=== PATIENT | female | born 1960 | race Caucasian/White ===

== ENCOUNTER 2016-05-11 17:15 | Emergency (ER) | payer MEDICAID ==
[~2016-05-11] VITALS: Wt 69.0 kg
[2016-05-11 20:09] LABS: URINE BLOOD (Dip) POC Trace-intact (NEGATIVE)
[2016-05-11] MEDS ORDERED: SOD CHLORIDE 0.9% 1,000 ML IV STA (20:10)
[2016-05-11] MEDS ORDERED: ONDANSETRON 4 MG INJ IV STA (20:10)
[2016-05-11] MEDS ORDERED: morphine 4 MG/ML VIAL IV STA (20:10)
--- NOTE | 2016-05-11 20:10 | ERD ---
ER Documentation Chief Complaint Date/Time DATE: 05/11/16 TIME: 20:10 Chief Complaint ABD PAIN WITH DIARRHEA AND "SWELLING" X 1 WEEK HPI 56-year-old female history of hyperlipidemia, status post remote cholecystectomy ambulatory to the ED complaining of a three-week history of intermittent, moderate, crampy, generalized, non-radio abdominal pain with feelings of abdominal distention for 1 week. She also has had intermittent, burning, nonradiating epigastric pain which is not improved by eating. Mild nausea but no vomiting. Several episodes of nonbloody, nonmucoid diarrhea. Denies recent travel, ill contacts or spelled food exposure. Yesterday she was seen at [facility] and treated with nitrofurantoin for urinary tract infection but symptoms have not improved. Denies dysuria, polyuria, hematuria or flank pain. No vaginal discharge or bleeding. No chest pain or palpitations. No headache or neck pain. No fevers or chills. ROS All systems reviewed and are negative except as per history of present illness. Allergies Allergies: Coded Allergies: No Known Allergies (Verified Allergy, Mild, 07/12/10) PMhx/Soc Reviewed in chart. As per HPI History of Surgery: Yes (Cholecystectomy) Anesthesia Reaction: No Hx Neurological Disorder: No Hx Respiratory Disorders: No Hx Cardiac Disorders: Yes (HIGH CHOLESTEROL) Hx Psychiatric Problems: No Hx Miscellaneous Medical Probl: No Hx Alcohol Use: No Hx Substance Use: No Hx Tobacco Use: No FmHx No stroke or cancer Physical Exam Vitals Vital Signs Date Time Temp Pulse Resp B/P Pulse Ox O2 Delivery O2 Flow Rate FiO2 05/11/16 20:59 98.6 76 18 140/64 100 Room Air 05/11/16 17:18 98.7 87 18 137/60 99 Physical Exam Const: Alert, mild distress due to pain. Head: Atraumatic Eyes: Normal Conjunctiva. Sclera anicteric. ENT: Normal External Ears, Nose and Mouth. Neck: Full range of motion. Nontender. Full range of motion. Resp: Breath sounds are equal and clear to auscultation bilaterally. No rales rhonchi or wheezes. Cardio: Regular rate and rhythm, no murmurs Abd: Soft, non tender, non distended. Normal bowel sounds. No rebound or guarding. No masses or abnormal pulsations. Skin: No petechiae or rashes Back: No midline or flank tenderness Ext: No cyanosis, or edema Neur: Awake and alert. No focal deficit observed. Psych: Normal Mood and Affect Result Diagram: 05/11/16200405/11/162004 Results 24 hrs Laboratory Tests Test 05/11/16 20:00 05/11/16 20:05 05/11/16 20:08 Urine Color DK. YELLOW Urine Clarity CLEAR Urine pH 6.5 Urine Specific [place] 1.020 Urine Ketones TRACE Urine Nitrite NEGATIVE Urine Bilirubin NEGATIVE Urine Urobilinogen 0.2 E.U./dL Urine Leukocyte Esterase NEGATIVE Urine Hemoglobin NEGATIVE Urine Glucose NEGATIVE% Urine Total Protein NEGATIVE White Blood Count 9.010^3/ul Red Blood Count 4.5910^6/ul Hemoglobin 13.3g/dl Hematocrit 40.0% Mean Corpuscular Volume 87.1fl Mean Corpuscular Hemoglobin 29.0pg Mean Corpuscular Hemoglobin Concent 33.3g/dl Red Cell Distribution Width 13.4% Platelet Count 61865^3/UL Mean Platelet Volume 10.2fl Neutrophils % 48.8% Lymphocytes % 40.1% Monocytes % 7.7% Eosinophils % 2.7% Basophils % 0.4% Nucleated Red Blood Cells % 0.0/100WBC Neutrophils # 4.410^3/ul Lymphocytes # 3.610^3/ul Monocytes # 0.710^3/ul Eosinophils # 0.210^3/ul Basophils # 0.010^3/ul Nucleated Red Blood Cells # 0.010^3/ul Sodium Level 143mmol/L Potassium Level 3.4mmol/L Chloride Level 104mmol/L Carbon Dioxide Level 26mmol/L Anion Gap 16 Blood Urea Nitrogen 13mg/dl Creatinine 0.79mg/dl Glucose Level 98mg/dl Calcium Level 9.7mg/dl Total Bilirubin 0.3mg/dl Direct Bilirubin 0.00mg/dl Indirect Bilirubin 0.3mg/dl Aspartate Amino Transf (AST/SGOT) 41IU/L Alanine Aminotransferase (ALT/SGPT) 70IU/L Alkaline Phosphatase 100IU/L Total Protein 7.5g/dl Albumin 4.2g/dl Globulin 3.30g/dl Albumin/Globulin Ratio 1.27 Lipase 69U/L Bedside Urine pH (LAB) 6.0 Bedside Urine Protein (LAB) Negative Bedside Urine Glucose (UA) Negative Bedside Urine Ketones (LAB) 1+ Bedside Urine Blood Trace-intact Bedside Urine Nitrite (LAB) Negative Bedside Urine Leukocyte Esterase (L Negative Current Medications Medications (Trade) Dose Ordered Sig/Trevor Route PRN Reason Start Time Stop Time Status Last Admin Dose Admin Sodium Chloride (NS) 1,000 ml @ 1,000 mls/hr Q1H STAT IV 05/11/16 20:10 05/11/16 21:09 DC 05/11/16 20:24 Morphine Sulfate (morphine) 4 mg ONCE STAT IV 05/11/16 20:10 05/11/16 20:13 DC 05/11/16 20:24 Ondansetron HCl (Zofran Inj) 4 mg ONCE STAT IV 05/11/16 20:10 05/11/16 20:13 DC 05/11/16 20:24 Pantoprazole (Protonix Iv) 40 mg ONCE ONCE IV 05/11/16 20:30 05/11/16 20:31 DC 05/11/16 20:24 IV Flush 10 ml 10 ml STK-MED ONCE .ROUTE 05/11/16 21:18 05/11/16 21:19 DC 05/11/16 21:31 Sodium Chloride (NS) 100 ml @ ud STK-MED ONCE .ROUTE 05/11/16 21:18 05/11/16 21:19 DC 05/11/16 21:31 Iohexol (Omnipaque 300mg/ ml) 150 ml STK-MED ONCE .ROUTE 05/11/16 21:18 05/11/16 21:19 DC 05/11/16 21:31 PROCEDURE: CT Abdomen and Pelvis with contrast. CLINICAL INDICATION: Abdominal pain. TECHNIQUE: A CT scan of the abdomen and pelvis was performed with intravenous contrast. The patient was scanned following the uncomplicated intravenous administration of 100 cc of Omnipaque-300. Coronal and sagittal reformatted images were obtained from the axial source images. Images were reviewed on a high-resolution PACS workstation. CTDIvol: 13.42 mGy. DLP: 671.93 mGy-cm. One or more of the following dose reduction techniques were used: - Automated exposure control. - Adjustment of the mA and/or kV according to patient size. - Use of iterative reconstruction technique. COMPARISON: None. FINDINGS: There are minimal atelectatic changes at the lung bases. The liver is unremarkable. The patient is status post cholecystectomy. The common bile duct is not dilated. The spleen is not enlarged. No pancreatic lesion is identified and there is no pancreatic ductal dilatation. The adrenal glands are unremarkable. The kidneys are normal in size. There is no perinephric fat stranding. No hydronephrosis is seen. The small and large bowel are normal in caliber. There is no bowel wall thickening. The appendix is normal. The urinary bladder is unremarkable. The pelvic organs are within normal limits. No lymphadenopathy is identified. There is no ascites. No pneumoperitoneum is seen. There are no arterial calcifications. No suspicious osseous lesion is idenitified. IMPRESSION: 1. No inflammation, mass, or lymphadenopathy. 2. Normal appendix. 3. Status post cholecystectomy. RPTAT: HTAR .Horacio Ly MD, MD Date Time Electronically viewed and signed by .Horacio yL MD, MD on 05/11/2016 22:01 .R/ Procedures/MDM DOCUMENTS REVIEWED: ED nurse prior ED MEDICAL DECISION MAKIN-year-old female history of hyperlipidemia, status post remote cholecystectomy ambulatory to the ED for evaluation of abdominal pain. Abdominal exam is benign without significant tenderness, rebound, guarding or other signs of peritonitis. CT of the abdomen and pelvis is unremarkable for an acute process including but not limited to appendicitis, diverticulitis, bowel obstruction or colitis. Epigastric abdominal pain possibly related to gastritis/GERD. Ongoing diarrhea which began before she started the antibiotics and C. difficile is unlikely. Viral gastroenteritis, bacterial enteritis and foodborne illness were considered. No fever, leukocytosis or other signs of an occult infectious process. An occult malignancy is not ruled out. Patient improved significantly with IV hydration, analgesics, antiemetics and proton pump inhibitors. Patient understands that the etiology of her symptoms have not been definitively established but in the absence of signs of serious disease outpatient follow-up is appropriate. Stable for discharge with precautionary instructions and outpatient follow-up as counseled. Counseled patient regarding diagnostic workup, diagnosis and need for followup. Understands to return to ED if symptoms recur, worsen or any other concerns. Departure Diagnosis: Primary Impression: Abdominal pain of unknown etiology Additional Impressions: Gastritis Gastritis type: unspecified gastritis Chronicity: acute Gastritis bleeding : without bleeding Qualified Code: K29.00 - Acute gastritis without hemorrhage, unspecified gastritis type Diarrhea Diarrhea type: unspecified type Qualified Code: R19.7 - Diarrhea, unspecified type Condition: Stable Patient Instructions: Abdominal Pain, Unknown Cause, (Female), Gastritis Vs. Ulcer, Treating Diarrhea DENICE BUENO MD May 11, 2016 20:10
[2016-05-11 20:23] LABS: ADD SCAN DIFF NO
[2016-05-11 20:28] LABS: BASOPHILS % 0.4 % (0.0-2.0); EOSINOPHILS # 0.2 10^3/ul (0.0-0.5); EOSINOPHILS % 2.7 % (0.0-7.0); HEMOGLOBIN 13.3 g/dl (12.0-16.0); LYMPHOCYTES # 3.6 10^3/ul (0.8-2.9); LYMPHOCYTES % 40.1 % (15.0-51.0); MEAN CORPUSCULAR HGB CONC 33.3 g/dl (32.0-37.0); MEAN CORPUSCULAR VOLUME 87.1 fl (82.0-101.0); MEAN PLATELET VOLUME 10.2 fl (7.4-10.4); MONOCYTE # 0.7 10^3/ul (0.3-0.9); MONOCYTES % 7.7 % (0.0-11.0); NEUTROPHIL # 4.4 10^3/ul (1.6-7.5); NEUTROPHILS % 48.8 % (39.0-77.0); PLATELET COUNT 399 10^3/UL (140-415); RED BLOOD COUNT 4.59 10^6/ul (4.20-5.40); RED CELL DISTRIBUTION WIDTH 13.4 % (11.5-14.5)
[2016-05-11] MEDS ORDERED: PANTOPRAZOLE 40 MG INJ IV ONE (20:30)
[2016-05-11 20:37] LABS: ALBUMIN 4.2 g/dl (3.3-4.9)
[2016-05-11 20:38] LABS: POTASSIUM 3.4 mmol/L (3.5-5.1)
[2016-05-11 20:40] LABS: ALBUMIN/GLOBULIN RATIO 1.27; BILIRUBIN,INDIRECT 0.3 mg/dl (0-1.1); BILIRUBIN,TOTAL 0.3 mg/dl (0.2-1.3); CREATININE 0.79 mg/dl (0.44-1.00); TOTAL PROTEIN 7.5 g/dl (6.1-8.1)
[2016-05-11 20:41] LABS: CALCIUM 9.7 mg/dl (8.4-10.2)
[2016-05-11 21:03] LABS: ADD UMIC NO; URINE BILIRUBIN (Dip) NEGATIVE (NEGATIVE); URINE BLOOD (Dip) NEGATIVE (NEGATIVE); URINE COLOR DK. YELLOW (YELLOW); URINE GLUCOSE (Dip) NEGATIVE (NEGATIVE); URINE KETONES (Dip) TRACE (NEGATIVE); URINE LEUKOCYTE ESTERASE (Dip) NEGATIVE (NEGATIVE); URINE NITRITE (Dip) NEGATIVE (NEGATIVE); URINE TOTAL PROTEIN (Dip) NEGATIVE (NEGATIVE); URINE UROBILINOGEN (Dip) 0.2 E.U./dL (0.1-1.0)
[2016-05-11] MEDS ORDERED: SOD CHLORIDE 0.9% 100 ML ONE (21:18)
[2016-05-11] MEDS ORDERED: IOHEXOL 300MG/ML 150 ML BTL ONE (21:18)
--- NOTE | 2016-05-11 22:01 | RADRPT ---
PROCEDURE: CT Abdomen and Pelvis with contrast. CLINICAL INDICATION: Abdominal pain. TECHNIQUE: A CT scan of the abdomen and pelvis was performed with intravenous contrast. The patie nt was scanned following the uncomplicated intravenous administration of 100 cc of Omnipaque-300. C oronal and sagittal reformatted images were obtained from the axial source images. Images were revie wed on a high-resolution PACS workstation. CTDIvol: 13.42 mGy. DLP: 671.93 mGy-cm. One or more of the following dose reduction techniques were used: - Automated exposure control. - Adjustment of the mA and/or kV according to patient size. - Use of iterative reconstruction technique. COMPARISON: None. FINDINGS: There are minimal atelectatic changes at the lung bases. The liver is unremarkable. The patient is status post cholecystectomy. The common bile duct is not dilated. The spleen is not enlarged. No pancreatic lesion is identified and there is no pancreatic d uctal dilatation. The adrenal glands are unremarkable. The kidneys are normal in size. There is no perinephric fat stranding. No hydronephrosis is seen. The small and large bowel are normal in caliber. There is no bowel wall thickening. The appendix is normal. The urinary bladder is unremarkable. The pelvic organs are within normal limits. No lymphadenopathy is identified. There is no ascites. No pneumoperitoneum is seen. There are no art erial calcifications. No suspicious osseous lesion is idenitified. IMPRESSION: 1. No inflammation, mass, or lymphadenopathy. 2. Normal appendix. 3. Status post cholecystectomy. RPTAT: HTAR .Horacio Ly MD, Date Time Electronically viewed and signed by .Horacio Ly MD, MD on 05/11/2016 22:01 .R/
[2016-05-11] MEDS ORDERED: PANT40TA3 PO (22:38)
[2016-05-11] MEDS ORDERED: CIPR500T4 PO (22:38)
[2016-05-11 22:51] VITALS: BP 142/72; PULSE 68; RESP 18; TEMP 98.6
== END 2016-05-11 22:54 | disposition home or self-care (01) ==
LOC: E/R 17:15
DX: R10.84 Generalized abdominal pain (principal); K29.00 Acute gastritis without bleeding; R19.7 Diarrhea, unspecified; R40.2142 Coma scale, eyes open, spontaneous, at arrival to emergency department; R40.2252 Coma scale, best verbal response, oriented, at arrival to emergency department; R40.2362 Coma scale, best motor response, obeys commands, at arrival to emergency department; I10 Essential (primary) hypertension; J45.909 Unspecified asthma, uncomplicated; R11.0 Nausea; F17.210 Nicotine dependence, cigarettes, uncomplicated
CPT/HCPCS: 36415; 74177; 80053; 81003; 83690; 85025; 96374; 96375; C9113; J2270; J2405; J7030; Q9967; Z7502; Z7610

== ENCOUNTER 2016-06-22 17:01 | Emergency (ER) | payer BC, MEDICAID ==
[~2016-06-22] VITALS: Ht 157.5 cm; Wt 68.5 kg
[~2016-06-22 17:01] MED LIST: CIPR500T4 PO; PANT40TA3 PO
[2016-06-22 17:22] VITALS: Ht 157.5 cm; Wt 68.5 kg
[2016-06-22] MEDS ORDERED: IBUP-1542 PO (17:44)
--- NOTE | 2016-06-22 17:53 | ERA ---
ER Documentation Chief Complaint Date/Time DATE: 06/22/16 TIME: 17:48 Chief Complaint left neck pain radiates down left are starting today at 3pm HPI 56-year-old female with a chief complaint of left arm pain. Patient denies any shortness of breath or chest pain. Patient describes the pain in the shoulder is sharp worse when abducting arm. Patient denies radiation of the pain. Denies cardiac condition or diabetes. Pain has been lasting constantly for the past 3 days and is difficult to sleep on her side. Patient does not report any mechanism of injury/trauma. Patient was seen by another emergency department 1 day ago and was given tramadol for pain. Says that the tramadol is not providing enough pain relief. The patient speaks Syriac and the nurse Will was the siderographer. ROS All systems reviewed and are negative except as per history of present illness. Medications Home Meds Active Scripts Ibuprofen* (Motrin*) 600 Mg Tab, 600 MG PO Q6, #30 TAB Prov:MARILEE GALEAS PA-C 06/22/16 Ciprofloxacin Hcl* (Ciprofloxacin Hcl*) 500 Mg Tablet, 500 MG PO BID for 3 Days , TAB Prov:DENICE BUENO MD 05/11/16 Pantoprazole* (Protonix*) 40 Mg Tablet.dr, 40 MG PO DAILY, #20 TAB Prov:DENICE BUENO MD 05/11/16 Allergies Allergies: Coded Allergies: No Known Allergies (Verified Allergy, Mild, 07/12/10) PMhx/Soc History of Surgery: Yes (Cholecystectomy) Anesthesia Reaction: No Hx Neurological Disorder: No Hx Respiratory Disorders: Yes (ASTHMA) Hx Cardiac Disorders: Yes (HIGH CHOLESTEROL, HTN) Hx Psychiatric Problems: No Hx Miscellaneous Medical Probl: No Hx Alcohol Use: No Hx Substance Use: No Hx Tobacco Use: Yes Physical Exam Vitals Vital Signs Date Time Temp Pulse Resp B/P Pulse Ox O2 Delivery O2 Flow Rate FiO2 06/22/16 17:22 98.3 89 18 139/77 97 Physical Exam Const: Overweight 56-year-old female Head: Atraumatic Eyes: Normal Conjunctiva ENT: Normal External Ears, Nose and Mouth. Neck: Full range of motion..~ No meningismus. Resp: Clear to auscultation bilaterally Cardio: Regular rate and rhythm, no murmurs Abd: Soft, non tender, non distended. Normal bowel sounds Skin: No petechiae or rashes Back: No midline or flank tenderness Ext: Decreased range of motion in left arm with abduction. Drop arm sign was positive. Pain with passive range of motion on abduction past 90. No impingement felt. No cyanosis, or edema Neur: Awake and alert Psych: Normal Mood and Affect Procedures/MDM 56-year-old female with a chief complaint being evaluated for left arm pain 3 days. Patient's most likely diagnosis is rotator cuff syndrome. There is no impact reason for me to suspect fracture. Denies osteoporosis/osteomalacia. And significant medical history. Patient's physical exam was consistent with rotator cuff syndrome/tear. We will go ahead and change the patient's pain relief medication to ibuprofen and have advised the patient that she should stop taking tramadol. Have stressed the need to follow-up with family practitioner/primary care provider for further evaluation and and evaluation by an crime scene specialist. The patient verbally responded that she understood to these recommendations and the plan of management. Departure Diagnosis: Primary Impression: Rotator cuff syndrome of left shoulder Condition: Stable Patient Instructions: Understanding Rotator Cuff Injuries Additional Instructions: Finn un seguimiento con shin PCP dentro de los prximos 1-3 adamson para sofia evaluaci n ms completa y sofia posible derivacin a un especialista. Devuelva el departamento de emergencia inmediatamente si los sntomas empeoran o cambian. Si tiene alguna pregunta con respecto a los medicamentos, consulte con shin farmac utico o con nosotros antes de salir. Si se producen reacciones adversas mientras salas elvin medicamentos, suspenda el tratamiento y regrese inmediatamente al servicio de urgencias. Travilah elvin medicamentos segn las indicaciones y complete el curso completo del tratamiento. MARILEE GALEAS PA-C June 22, 2016 17:53
== END 2016-06-22 18:53 | disposition home or self-care (01) ==
LOC: FTE 17:01
DX: M75.102 Unspecified rotator cuff tear or rupture of left shoulder, not specified as traumatic (principal); J45.909 Unspecified asthma, uncomplicated; I10 Essential (primary) hypertension; Z87.891 Personal history of nicotine dependence
CPT/HCPCS: 99283

== ENCOUNTER 2018-09-02 15:59 | Emergency (ER) | payer SELFPAY ==
[~2018-09-02] VITALS: Ht 157.5 cm; Wt 69.7 kg
[~2018-09-02 15:59] MED LIST changes: +IBUP-1542 PO
[2018-09-02 16:02] VITALS: BP 140/77; PULSE 94; RESP 20; Ht 157.5 cm; Wt 69.7 kg
--- NOTE | 2018-09-02 16:09 | EN ---
Date/Time of Note Date/Time of Note DATE: 09/02/18 TIME: 16:07 ER Progress Note 58-year-old female with 1 week history of generalized body aches headache, upper extremities, lower extremities. She has pain with putting on her shoes and closed. She is concerned she has lupus. Patient has a history of prediabetes, diet-controlled, history of cholecystectomy and tubal ligation. General labs ordered from ED 3. Patient otherwise well-appearing. ED 2 appropriate for lab results and symptomatic treatment. MITCHELL SZYMANSKI MD Sep 02, 2018 16:09
--- NOTE | 2018-09-02 17:07 | ERD ---
ER Documentation Chief Complaint Chief Complaint TOTAL BODYACHES AND FEELING TIRED HPI 58-year-old female with no reported past medical history with 1 week history of generalized body aches headache, upper extremities, lower extremities. She has pain with putting on her shoes and closed. She is concerned she has lupus. Patient has a history of prediabetes, diet-controlled, history of cholecystectomy and tubal ligation. He otherwise reports good health, denying chest pain, shortness of breath, dyspnea, nausea, vomiting, diarrhea, abdominal pain, urinary symptoms. She has not seen a PMD in some time. ROS All systems reviewed and are negative except as per history of present illness. Medications Home Meds Active Scripts Ibuprofen* (Motrin*) 600 Mg Tab, 600 MG PO Q6, #30 TAB Prov:ERICKA TOLBERT PA-C 09/02/18 Ibuprofen* (Motrin*) 600 Mg Tab, 600 MG PO Q6, #30 TAB Prov:MARILEE GALEAS PA-C 06/22/16 Ciprofloxacin Hcl* (Ciprofloxacin Hcl*) 500 Mg Tablet, 500 MG PO BID for 3 Days, TAB Prov:DENICE BUENO MD 05/11/16 Pantoprazole* (Protonix*) 40 Mg Tablet.dr, 40 MG PO DAILY, #20 TAB Prov:DENICE BUENO MD 05/11/16 Allergies Allergies: Coded Allergies: No Known Allergies (Verified Allergy, Mild, 09/02/18) PMhx/Soc History of Surgery: Yes (Cholecystectomy) Anesthesia Reaction: No Hx Neurological Disorder: No Hx Respiratory Disorders: Yes (ASTHMA) Hx Cardiac Disorders: Yes (HIGH CHOLESTEROL, HTN) Hx Psychiatric Problems: No Hx Miscellaneous Medical Probl: No Hx Alcohol Use: No Hx Substance Use: No Hx Tobacco Use: Yes Smoking Status: Never smoker FmHx Family History: No diabetes, No coronary disease, No other Physical Exam Vitals Vital Signs Date Temp Pulse Resp B/P (MAP) Pulse Ox O2 O2 Flow FiO2 Time Delivery Rate 09/02/18 99.1 94 20 140/77 99 16:02 (98) Physical Exam Const: No acute distress Head: Atraumatic Eyes: Normal Conjunctiva ENT: Normal External Ears, Nose and Mouth. Neck: Full range of motion. No meningismus. Resp: Clear to auscultation bilaterally Cardio: Regular rate and rhythm, no murmurs Abd: Soft, non tender, non distended. Normal bowel sounds Skin: No petechiae or rashes Back: No midline or flank tenderness Ext: No cyanosis, or edema Neur: Awake and alert Psych: Normal Mood and Affect Result Diagram: 09/02/18 1622 09/02/18 1622 Results 24 hrs Laboratory Tests Test 09/02/18 16:22 White Blood Count 11.4 10^3/ul Red Blood Count 5.08 10^6/ul Hemoglobin 14.3 g/dl Hematocrit 43.2 % Mean Corpuscular Volume 85.0 fl Mean Corpuscular Hemoglobin 28.1 pg Mean Corpuscular Hemoglobin Concent 33.1 g/dl Red Cell Distribution Width 13.2 % Platelet Count 456 10^3/UL Mean Platelet Volume 10.3 fl Immature Granulocytes % 0.400 % Neutrophils % 50.2 % Lymphocytes % 39.9 % Monocytes % 5.8 % Eosinophils % 2.8 % Basophils % 0.9 % Nucleated Red Blood Cells % 0.0 /100WBC Immature Granulocytes # 0.040 10^3/ul Neutrophils # 5.7 10^3/ul Lymphocytes # 4.6 10^3/ul Monocytes # 0.7 10^3/ul Eosinophils # 0.3 10^3/ul Basophils # 0.1 10^3/ul Nucleated Red Blood Cells # 0.0 10^3/ul Erythrocyte Sedimentation Rate 12 mm/Hr Urine Color YELLOW Urine Clarity SLIGHTLY CLOUDY Urine pH 5.0 Urine Specific [place] 1.023 Urine Ketones NEGATIVE mg/dL Urine Nitrite NEGATIVE mg/dL Urine Bilirubin NEGATIVE mg/dL Urine Urobilinogen NEGATIVE mg/dL Urine Leukocyte Esterase 1+ Ryan/ul Urine Microscopic RBC 3 /HPF Urine Microscopic WBC 3 /HPF Urine Squamous Epithelial Cells MODERATE /HPF Urine Bacteria FEW /HPF Urine Mucus MANY /HPF Urine Hemoglobin 1+ mg/dL Urine Glucose NEGATIVE mg/dL Urine Total Protein NEGATIVE mg/dl Sodium Level 142 mmol/L Potassium Level 4.0 mmol/L Chloride Level 110 mmol/L Carbon Dioxide Level 21 mmol/L Anion Gap 11 Blood Urea Nitrogen 13 mg/dl Creatinine 0.62 mg/dl Est Glomerular Filtrat Rate mL/min > 60 mL/min Glucose Level 104 mg/dl Calcium Level 11.3 mg/dl Total Bilirubin 0.4 mg/dl Direct Bilirubin 0.00 mg/dl Indirect Bilirubin 0.4 mg/dl Aspartate Amino Transf (AST/SGOT) 32 IU/L Alanine Aminotransferase (ALT/SGPT) 35 IU/L Alkaline Phosphatase 102 IU/L Total Protein 8.5 g/dl Albumin 4.6 g/dl Globulin 3.90 g/dl Albumin/Globulin Ratio 1.17 Procedures/MDM 58-year-old female presents with multiple complaints including total body aches and general fatigue. Low suspicion for any acute process warranting further emergent care work-up. Basic laboratory studies unremarkable. Patient advised to establish care with primary care physician for further evaluation and care. All questions answered. DISPOSITION PLAN: We discussed follow up with the patient's primary care doctor within 24 to 48 hours. Patient counseled regarding my diagnostic impression and care plan. Prior to discharge all questions answered. Pt agrees with treatment plan and understands strict return precautions. Precautionary instructions provided including instructions to return to the ER if not improving or for any worsening or changing symptoms or concerns. Disclaimer: Inadvertent spelling and grammatical errors are likely due to EHR/dictation software use and do not reflect on the overall quality of patient care. Also, please note that the electronic time recorded on this note does not necessarily reflect the actual time of the patient encounter. ERICKA TOLBERT PA-C Sep 02, 2018 17:07
[2018-09-02] MEDS ORDERED: IBUP-1542 PO (17:38)
== END 2018-09-02 18:04 | disposition home or self-care (01) ==
LOC: E/R 15:59 → FTE 18:04
DX: R53.83 Other fatigue (principal); R52 Pain, unspecified; I10 Essential (primary) hypertension; J45.909 Unspecified asthma, uncomplicated; Z87.891 Personal history of nicotine dependence
CPT/HCPCS: 80053; 81001; 85025; 85651; 99283